=== PATIENT | female | born 1970 | race Hispanic/Latino ===

== ENCOUNTER 2021-11-21 21:45 | Emergency (ER) | payer BC ==
[~2021-11-21] VITALS: Ht 154.9 cm; Wt 82.1 kg
[2021-11-21 22:45] VITALS: BP 134/94
== END 2021-11-21 23:15 | disposition left against medical advice (07) ==
LOC: EDH 21:45
DX: R51.9 Headache, unspecified (principal); Z53.21 Procedure and treatment not carried out due to patient leaving prior to being seen by health care provider